=== PATIENT | male | born 1985 | race Caucasian/White ===

== ENCOUNTER 2019-11-03 20:13 | Emergency (ER) | payer MEDICAID, OTHER ==
[~2019-11-03] VITALS: Ht 180.3 cm; Wt 104.0 kg
[2019-11-03 20:35] VITALS: BP 139/86
== END 2019-11-03 23:54 | disposition left against medical advice (07) ==
LOC: ER 20:13
DX: J11.1 Influenza due to unidentified influenza virus with other respiratory manifestations (principal); Z53.21 Procedure and treatment not carried out due to patient leaving prior to being seen by health care provider

== ENCOUNTER 2019-11-06 13:36 | Emergency (ER) | payer SELFPAY ==
[~2019-11-06] VITALS: Ht 177.8 cm; Wt 84.0 kg
[2019-11-06] MEDS ORDERED: SODIUM CHLORIDE 0.9% 1,000 ML IV ONE (18:20)
[2019-11-06] MEDS ORDERED: ONDANSETRON HCL 4MG/2ML INJ IV STA (18:20)
[2019-11-06] MEDS ORDERED: KETOROLAC 30MG/ML VIAL IV STA (18:20)
[2019-11-06 18:31] LABS: HEMATOCRIT. 48.1 % (42.0-52.0); HEMOGLOBIN. 16.9 g/dL (14.0-18.0); MEAN CORPUSCULAR HEMOGLOBIN 30.8 pg (28.0-32.0); MEAN CORPUSCULAR VOLUME 87.6 fL (80.0-94.0); MEAN PLATELET VOLUME 9.6 fl (7.4-10.4); PLATELET 179 x1000/uL (130-400); RED BLOOD CELL COUNT 5.48 mill/uL (4.7-6.1); RED CELL DISTRIBUTION WIDTH 13.9 % (11.6-14.6)
[2019-11-06 18:38] LABS: CHLORIDE 97 mEq/L (98-107)
[2019-11-06] MEDS ORDERED: POTASSIUM CHLORIDE 20MEQ TABLET SR PO ONE (19:15)
[2019-11-06 19:27] LABS: CLARITY URINE CLEAR (CLEAR); COLOR URINE YELLOW (YELLOW); KETONES URINE NEGATIVE (NEGATIVE); LEUKOCYTE ESTERASE URINE NEGATIVE (NEGATIVE); NITRITE URINE NEGATIVE (NEGATIVE); OCCULT BLOOD URINE 2+ (NEGATIVE); PH URINE 6.5 (4.5-8.0); PROTEIN URINE 4+ (NEGATIVE); SPECIFIC GRAVITY URINE 1.013 (1.005-1.030)
[2019-11-06 20:11] LABS: ATYPICAL LYMPHOCYTES 1
[2019-11-06 20:12] LABS: PLATELET ESTIMATE NORMAL
[2019-11-06 21:29] VITALS: BP 116/71
== END 2019-11-06 21:33 | disposition home or self-care (01) ==
LOC: ER 13:36
DX: B34.9 Viral infection, unspecified (principal); R05 Cough; R11.10 Vomiting, unspecified; R10.9 Unspecified abdominal pain; F12.10 Cannabis abuse, uncomplicated; Z90.49 Acquired absence of other specified parts of digestive tract; Z87.19 Personal history of other diseases of the digestive system
CPT/HCPCS: 36415; 71045; 80053; 81003; 83690; 85025; 93005; 96361; 96374; 96375; 99284; J1885; J2405; J7030; Z7610

== ENCOUNTER 2021-07-26 13:25 | Emergency (ER) | payer MEDICAID ==
[~2021-07-26] VITALS: Ht 180.3 cm; Wt 102.0 kg
[2021-07-26 13:27] VITALS: BP 174/84
[2021-07-26] MEDS ORDERED: IBUPROFEN 600MG TABLET PO ONE (14:15)
[2021-07-26] MEDS ORDERED: NAPR-1176 MT (14:46)
== END 2021-07-26 15:04 | disposition home or self-care (01) ==
LOC: ER 13:25
DX: S93.492A Sprain of other ligament of left ankle, initial encounter (principal); R03.0 Elevated blood-pressure reading, without diagnosis of hypertension; W10.8XXA Fall (on) (from) other stairs and steps, initial encounter; Y93.01 Activity, walking, marching and hiking; Y92.89 Other specified places as the place of occurrence of the external cause; Z87.19 Personal history of other diseases of the digestive system; Z90.49 Acquired absence of other specified parts of digestive tract; F12.90 Cannabis use, unspecified, uncomplicated
CPT/HCPCS: 73610; 73630; 99284